=== PATIENT | female | born 1955 | race Caucasian/White ===

== ENCOUNTER 2016-06-14 10:21 | Inpatient (IN) | payer MEDICARE, OTHER ==
[2016-06-14] MEDS ORDERED: CONSTULOSE10 GM/15 M PO (10:46)
[2016-06-14] MEDS ORDERED: NOVOLIN 70100 UNITS/ SC (10:47)
[2016-06-14] MEDS ORDERED: DOXYCYCLINE HY100 M3 PO (10:48)
[2016-06-14] MEDS ORDERED: LASIX20 M1 PO (10:49)
[2016-06-14] MEDS ORDERED: XIFAXAN550 M1 PO (10:49)
[2016-06-14] MEDS ORDERED: ATIVAN0.5 M1 PO (10:49)
[2016-06-14] MEDS ORDERED: ALDACTONE25 M1 PO (10:50)
[2016-06-14] MEDS ORDERED: TARCEVA PO (10:51)
[2016-06-14] MEDS ORDERED: REMERON15 M1 PO (10:51)
[2016-06-14] MEDS ORDERED: PROTONIX40 M2 PO (10:51)
[2016-06-14] MEDS ORDERED: OXYCODONE HCL5 M1 PO (10:52)
[2016-06-14] MEDS ORDERED: AMITRIPTYLINE100 M1 PO (10:52)
[2016-06-14] MEDS ORDERED: CORGARD20 M2 PO (10:52)
[2016-06-14] MEDS ORDERED: CALCIUM + VITA1 EAC4 PO (10:53)
[2016-06-14] MEDS ORDERED: POTASSIUM CHLO20 ME3 PO (10:53)
[2016-06-14] MEDS ORDERED: LOMOTIL 2.5-0.1 EACH PO (10:54)
[2016-06-14] MEDS ORDERED: EMOLLIENT CREA454 GM TP (10:54)
[2016-06-14 10:55] LABS: BASO % 0.2 % (0-2); EOS % 3.2 % (0-7); EOSINOPHIL ABSOLUTE COUNT 0.2 tho/cmm (0.0-0.7); HGB-HEMOGLOBIN 10.4 gm/dl (12.0-15.5); IMMATURE GRANULOCYTES ABSOLUTE 0.02 tho/cmm (0-0.03); IMMATURE GRANULOCYTES PERCENT 0.4 % (0-0.3); LYMPH ABSOLUTE COUNT 0.5 tho/cmm (0.8-4.5); MCH (MEAN CORPUSCULAR HGB) 31.5 pg (28.0-32.0); MCHC MEAN CORPUSCULAR HGB CONC 32.5 % (32.0-36.0); MEAN PLATELET VOLUME 10.1 cmc (9.4-12.4); MONO % 6.1 % (0-12); MONOCYTE ABSOLUTE COUNT 0.3 tho/cmm (0.0-1.2); NEUTROPHIL ABSOLUTE COUNT 4.2 tho/cmm (1.6-8.0); NEUTROPHIL-AUTOMATED 4.2 tho/cmm (1.6-8.0); NEUTROPHILS % 80.1 % (40-80); RED CELL DISTRIBUTION WIDTH 19.1 % (12.4-16.4); WHITE BLOOD COUNT 5.3 tho/cmm (4.0-10.0)
[2016-06-14] MEDS ORDERED: ANTI-ITCH28 GM TP (10:55)
[2016-06-14] MEDS ORDERED: GLUCAGEN1 MG/1 ML IM (10:55)
[2016-06-14] MEDS ORDERED: SENNA-DOCUSATE1 EAC1 PO (10:56)
[2016-06-14] MEDS ORDERED: ZOFRAN8 M1 PO (10:56)
[2016-06-14] MEDS ORDERED: STOMAHESIVE P28.3 GM TP (10:58)
[2016-06-14 11:00] LABS: INR 1.5 INR (0.9-1.1); PROTHROMBIN TIME 17.9 SECONDS (9.0-13.6)
[2016-06-14 11:09] LABS: ALBUMIN 2.9 g/dl (3.5-5.0); ALKALINE PHOSPHATASE 199 U/L (33-138); ALT/SGPT 22 U/L (12-78); ANION GAP 13 mmol/L (0-20); AST/SGOT 48 U/L (10-40); BILIRUBIN,TOTAL 5.8 mg/dl (0-1.5); BLOOD UREA NITROGEN 14 mg/dl (6-24); CALCIUM 8.5 mg/dl (8.5-10.5); CARBON DIOXIDE-VENOUS 28 mmol/L (22-32); CHLORIDE 108 mmol/l (96-110); CREATININE 0.66 mg/dl (0.50-1.10); GLUCOSE 156 mg/dL (70-110); LIPASE 54 U/L (73-393); POTASSIUM 3.6 mmol/L (3.7-5.1); SODIUM 145 mmol/L (135-145); eGFR VALUE FOR BLACK >90 mL/Min
[2016-06-14 11:43] LABS: PLATELET COUNT 77 tho/cmm (150-450)
[2016-06-14 12:55] LABS: URINE BILIRUBIN NEGATIVE (NEG); URINE BLOOD NEGATIVE (NEG); URINE GLUCOSE (UA) NEGATIVE (NEG); URINE KETONE NEGATIVE (NEG); URINE LEUKOCYTE ESTERASE POSITIVE (NEG); URINE NITRITE NEGATIVE (NEG); URINE PROTEIN NEGATIVE (NEG)
[2016-06-14 12:57] LABS: URINE APPEARANCE CLEAR; URINE COLOR DARK YELLOW
[2016-06-14 13:04] LABS: URINE EPITHELIAL CELLS 0-1 /[HPF] (0-10); URINE WBC 0-1 /[HPF] (0-5)
[2016-06-15 04:40] LABS: BASO % 0.3 % (0-2); EOS % 2.8 % (0-7); EOSINOPHIL ABSOLUTE COUNT 0.1 tho/cmm (0.0-0.7); HGB-HEMOGLOBIN 8.2 gm/dl (12.0-15.5); IMMATURE GRANULOCYTES ABSOLUTE 0.01 tho/cmm (0-0.03); IMMATURE GRANULOCYTES PERCENT 0.3 % (0-0.3); LYMPH % 27.5 % (20-45); MCHC MEAN CORPUSCULAR HGB CONC 32.8 % (32.0-36.0); MCV (MEAN CELL VOLUME) 97.7 fl (82.0-96.0); MEAN PLATELET VOLUME 10.4 cmc (9.4-12.4); MONO % 6.4 % (0-12); MONOCYTE ABSOLUTE COUNT 0.2 tho/cmm (0.0-1.2); NEUTROPHIL ABSOLUTE COUNT 2.2 tho/cmm (1.6-8.0); NEUTROPHIL-AUTOMATED 2.2 tho/cmm (1.6-8.0); NEUTROPHILS % 62.7 % (40-80); PLATELET COUNT 63 tho/cmm (150-450); RED BLOOD COUNT 2.56 mil/cmm (4.00-5.20); RED CELL DISTRIBUTION WIDTH 19.7 % (12.4-16.4); WHITE BLOOD COUNT 3.6 tho/cmm (4.0-10.0)
[2016-06-15 05:23] LABS: CALCIUM 7.6 mg/dl (8.5-10.5); CHLORIDE 109 mmol/l (96-110); POTASSIUM 3.2 mmol/L (3.7-5.1); SODIUM 145 mmol/L (135-145)
[2016-06-15 05:29] LABS: ALBUMIN 2.5 g/dl (3.5-5.0); ALKALINE PHOSPHATASE 149 U/L (33-138); ALT/SGPT 17 U/L (12-78); ANION GAP 11 mmol/L (0-20); AST/SGOT 40 U/L (10-40); BILIRUBIN,DIRECT 0.9 mg/dl (0.0-0.3); BILIRUBIN,INDIRECT 3.5 mg/dL (0.0-1.0); BILIRUBIN,TOTAL 4.4 mg/dl (0-1.5); BLOOD UREA NITROGEN 13 mg/dl (6-24); CARBON DIOXIDE-VENOUS 28 mmol/L (22-32); CREATININE 0.58 mg/dl (0.50-1.10); eGFR VALUE FOR BLACK >90 mL/Min
[2016-06-15 05:49] LABS: GLUCOSE 66 mg/dL (70-110)
[2016-06-15 08:22] LABS: URINE BILIRUBIN MODERATE (NEG); URINE BLOOD SMALL (NEG); URINE GLUCOSE (UA) NEGATIVE (NEG); URINE KETONE SMALL (NEG); URINE LEUKOCYTE ESTERASE POSITIVE (NEG); URINE NITRITE POSITIVE (NEG); URINE PROTEIN MODERATE (NEG)
[2016-06-15 08:23] LABS: URINE APPEARANCE CLEAR; URINE COLOR DARK YELLOW
[2016-06-15 08:44] LABS: URINE MUCUS 1+; URINE RBC 0-1 /[HPF] (0-5)
[2016-06-16 10:08] LABS: BASO % 0.3 % (0-2); EOS % 4.5 % (0-7); EOSINOPHIL ABSOLUTE COUNT 0.1 tho/cmm (0.0-0.7); HCT-HEMATOCRIT 27.1 % (34.0-49.0); IMMATURE GRANULOCYTES ABSOLUTE 0.01 tho/cmm (0-0.03); IMMATURE GRANULOCYTES PERCENT 0.3 % (0-0.3); LYMPH % 18.9 % (20-45); LYMPH ABSOLUTE COUNT 0.6 tho/cmm (0.8-4.5); MCH (MEAN CORPUSCULAR HGB) 32.5 pg (28.0-32.0); MCHC MEAN CORPUSCULAR HGB CONC 33.2 % (32.0-36.0); MCV (MEAN CELL VOLUME) 97.8 fl (82.0-96.0); MEAN PLATELET VOLUME 10.8 cmc (9.4-12.4); MONO % 5.4 % (0-12); MONOCYTE ABSOLUTE COUNT 0.2 tho/cmm (0.0-1.2); NEUTROPHIL ABSOLUTE COUNT 2.2 tho/cmm (1.6-8.0); NEUTROPHIL-AUTOMATED 2.2 tho/cmm (1.6-8.0); NEUTROPHILS % 70.6 % (40-80); PLATELET COUNT 66 tho/cmm (150-450); RED BLOOD COUNT 2.77 mil/cmm (4.00-5.20); RED CELL DISTRIBUTION WIDTH 20.1 % (12.4-16.4); WHITE BLOOD COUNT 3.1 tho/cmm (4.0-10.0)
[2016-06-16 10:26] LABS: ALBUMIN 2.7 g/dl (3.5-5.0); ALKALINE PHOSPHATASE 154 U/L (33-138); ALT/SGPT 21 U/L (12-78); ANION GAP 11 mmol/L (0-20); AST/SGOT 42 U/L (10-40); BILIRUBIN,TOTAL 4.1 mg/dl (0-1.5); BLOOD UREA NITROGEN 10 mg/dl (6-24); CALCIUM 7.9 mg/dl (8.5-10.5); CARBON DIOXIDE-VENOUS 25 mmol/L (22-32); CHLORIDE 112 mmol/l (96-110); CREATININE 0.52 mg/dl (0.50-1.10); MAGNESIUM 1.3 mg/dl (1.3-2.6); SODIUM 144 mmol/L (135-145); eGFR VALUE FOR BLACK >90 mL/Min
[2016-06-16 10:37] LABS: GLUCOSE 139 mg/dL (70-110)
[2016-06-16] MEDS ORDERED: MAGNESIUM OXID400 M1 PO (13:25)
== END 2016-06-16 15:25 | DRG 312 ==
LOC: EDMED 10:21 → EMR2 12:33 → 5WE 15:43
PROVIDERS: Emergency Medicine; Internal Medicine; Nurse Practitioner Acute Care; ADMIT Hospitalist
DX: I95.1 Orthostatic hypotension (principal); D61.818 Other pancytopenia; I85.00 Esophageal varices without bleeding; D69.6 Thrombocytopenia, unspecified; R16.1 Splenomegaly, not elsewhere classified; K76.6 Portal hypertension; D63.8 Anemia in other chronic diseases classified elsewhere; E87.6 Hypokalemia; F32.9 Major depressive disorder, single episode, unspecified; F41.9 Anxiety disorder, unspecified; G47.33 Obstructive sleep apnea (adult) (pediatric); I10 Essential (primary) hypertension; K74.60 Unspecified cirrhosis of liver; K75.81 Nonalcoholic steatohepatitis (NASH); M79.7 Fibromyalgia; Z66 Do not resuscitate; Z79.891 Long term (current) use of opiate analgesic; R82.71 Bacteriuria; K72.90 Hepatic failure, unspecified without coma
CPT/HCPCS: C1751; J1815; J7030; J7040; P9045